=== PATIENT | male | born 2000 | race African-American/Black ===

== ENCOUNTER 2024-11-26 03:01 | Inpatient (IN) | payer MEDICAID ==
[~2024-11-26] VITALS: Ht 195.6 cm; Wt 76.7 kg
[2024-11-26] VITALS (13 sets, daily range): BP systolic 123–139; BP diastolic 62–90; PULSE 70–88; RESP 16–18; TEMP 97.2–98.8; O2SAT 96–99
[2024-11-26] MEDS ORDERED: OLANZapine 5 MG RAPDIS TABLET PO PRN (03:30)
[2024-11-26] MEDS ORDERED: INFLUENZA VIRUS VACCINE TVS (6MO+) 2025-26/PF 45 MCG/0.5 ML SYRINGE IM. ONE (05:30)
[2024-11-26 05:36] LABS: GLUCOMETER DEV NAME(LOC) POC.BV; POC SARS-COV2 AG, FIA NEGATIVE (NEGATIVE)
[2024-11-26] MEDS ORDERED: MAGNESIUM HYDROXIDE SUSPENSION 30 ML UDCUP PO PRN (09:00)
[2024-11-26] MEDS ORDERED: GuaiFENesin/D-METHORPHAN [SUGAR-FREE] 200-20MG/10 ML SYRUP UDCUP PO PRN (09:00)
[2024-11-26] MEDS ORDERED: ACETAMINOPHEN 325 MG TABLET PO PRN (09:00)
[2024-11-26] MEDS ORDERED: PROMETHAZINE HCL 25 MG TABLET PO PRN (09:00)
[2024-11-26] MEDS ORDERED: LOPERAMIDE HCL 2 MG CAPSULE PO PRN ×2 (09:00)
[2024-11-26] MEDS ORDERED: MAG HYDROX/ALUMINUM HYD/SIMETH ES 30 ML SUSPENSION UDCUP PO PRN (09:00)
[2024-11-26] MEDS: OMEGA-3/DHA/EPA/FISH OIL 1,000 MG CAPSULE PO SCH (13:00)
[2024-11-26] MEDS: NALTREXONE HCL 50 MG TABLET PO SCH (14:07)
[2024-11-26] MEDS: FOLIC ACID 1 MG TABLET PO SCH (14:07)
[2024-11-26] MEDS: MULTIVITAMINS WITH MINERALS, THERAPEUTIC TABLET PO SCH (14:07)
[2024-11-26] MEDS: THIAMINE 100 MG TABLET PO SCH (14:07)
[2024-11-26] MEDS: CYANOCOBALAMIN 1,000 MCG/ML VIAL IM ONE (16:57)
[2024-11-26] MEDS: PALIPERIDONE PALMITATE 234 MG/1.5 ML SYRINGE IM ONE (20:04)
[2024-11-26] MEDS ORDERED: OLANZapine 5 MG RAPDIS TABLET PO SCH (21:00)
[2024-11-27 02:10] VITALS: RESP 18
[2024-11-27 06:14] VITALS: RESP 18
[2024-11-27] MEDS: LURASIDONE HCL 40 MG TABLET PO SCH (06:21)
[2024-11-27 08:07] VITALS: BP 135/67; PULSE 65; RESP 16; TEMP 98.1; O2SAT 100
[2024-11-27] MEDS: DIVALPROEX SODIUM 500 MG ER TABLET PO SCH (09:01)
[2024-11-27 09:22] LABS: PLATELET COUNT (AUTO) 252 K/uL (150-450); RED BLOOD CELL COUNT(AUTO) 4.97 MIL/uL (4.50-5.90); RED CELL DISTRIBUTION WIDTH 13.1 % (11.5-14.5); WHITE BLOOD COUNT (AUTO) 5.4 K/uL (4.5-11.0)
[2024-11-27 09:44] LABS: ASPARTATE AMINOTRANSFERASE 27 U/L (15-37); CALCIUM, TOTAL 9.1 mg/dL (8.8-10.5); CHOL/HDL RATIO 2.7 (4.2-7.3); CREATININE 0.72 mg/dL (0.60-1.30); GLOMERULAR FILTR. RATE CALC > 60 mL/min (>60); GLUCOSE,RANDOM 118 mg/dL (70-110); LDL CHOL (CALC.) 92 mg/dL (0-130); SODIUM SERUM 139 mmol/L (136-145); TOTAL PROTEIN, SERUM 7.6 g/dL (6.4-8.2); UREA NITROGEN, BLOOD 13 mg/dL (7-18)
[2024-11-27 10:08] LABS: ALCOHOL, BLOOD (SERUM) < 3 mg/dL (0-10)
[2024-11-27 20:00] VITALS: BP 114/62; PULSE 68; RESP 17; TEMP 98.1; O2SAT 100
[2024-11-28 08:17] VITALS: BP 121/89; PULSE 68; RESP 17; TEMP 98.4; O2SAT 98
[2024-11-28 13:12] VITALS: BP 122/7
[2024-11-28 20:16] VITALS: BP 133/89; PULSE 89; RESP 17; TEMP 98.1; O2SAT 100
[2024-11-28] MEDS: TUBERCULIN, PURIFIED PROTEIN DERIVATIVE 5 TU/0.1 ML SYRINGE ID ONE (22:00)
[2024-11-29 08:22] VITALS: BP 130/80; PULSE 65; RESP 17; TEMP 98.2; O2SAT 99
[2024-11-29 20:13] VITALS: BP 115/66; PULSE 83; RESP 17; TEMP 97.7; O2SAT 98
[2024-11-29] MEDS: ZOLPIDEM TARTRATE 10 MG TABLET PO PRN (21:05)
[2024-11-30 08:20] VITALS: BP 142/83; PULSE 77; RESP 17; TEMP 98; O2SAT 100
[2024-11-30] MEDS: PALIPERIDONE PALMITATE 156 MG/ML SYRINGE IM ONE (10:08)
[2024-11-30 20:00] VITALS: BP 132/73; PULSE 82; RESP 18; TEMP 97.7; O2SAT 100
[2024-11-30] MEDS: MELATONIN 5 MG TABLET PO PRN (21:25)
[2024-12-01 08:18] VITALS: BP 123/86; PULSE 81; RESP 19; TEMP 98.1; O2SAT 99
[2024-12-01 20:09] VITALS: BP 138/90; PULSE 78; RESP 18; TEMP 98; O2SAT 99
[2024-12-02 08:26] VITALS: BP 127/92; PULSE 77; RESP 17; TEMP 98.2
[2024-12-02 20:37] VITALS: BP 140/91; PULSE 78; RESP 17; TEMP 99; O2SAT 98
[2024-12-03] MEDS: LURASIDONE HCL 60 MG TABLET PO SCH (06:15)
[2024-12-03 08:15] VITALS: BP 120/75; PULSE 77; RESP 17; TEMP 98; O2SAT 100
[2024-12-03 20:11] VITALS: BP 131/89; PULSE 71; RESP 18; TEMP 99.1; O2SAT 100
[2024-12-04] MEDS: LURASIDONE HCL 80 MG TABLET PO SCH (06:41)
[2024-12-04 13:03] VITALS: BP 139/88; PULSE 93; RESP 16; TEMP 98.1; O2SAT 98
[2024-12-04 20:21] VITALS: BP 126/92; PULSE 84; RESP 18; TEMP 97.9; O2SAT 99
[2024-12-05 08:10] VITALS: BP 128/93; PULSE 75; RESP 18; TEMP 98.1; O2SAT 96
[2024-12-05 20:15] VITALS: BP 129/86; PULSE 83; RESP 18; TEMP 98.2; O2SAT 99
[2024-12-06] MEDS: LURASIDONE HCL 40 MG TABLET PO SCH (06:16)
[2024-12-06 08:18] VITALS: BP 122/79; PULSE 79; RESP 18; TEMP 97.2; O2SAT 97
[2024-12-06 20:19] VITALS: BP 134/99; PULSE 75; RESP 18; TEMP 98.1; O2SAT 100
[2024-12-07 08:13] VITALS: BP 114/76; PULSE 80; RESP 18; TEMP 98.8; O2SAT 99
[2024-12-07 10:15] LABS: APPEARANCE,URINE CLEAR (CLEAR); GLUCOSE, URINE (UA) NEGATIVE (NEGATIVE); LEUKOCYTE ESTERASE ,URINE NEGATIVE (NEGATIVE); NITRATE,URINE NEGATIVE (NEGATIVE); OCCULT BLOOD,URINE NEGATIVE (NEGATIVE); PH,URINE DRUG SCREEN 7.0 (5.0-8.0); SPECIFIC GRAVITIY, URINE 1.016 (1.003-1.030)
[2024-12-07 10:22] LABS: ALCOHOL, URINE DRUG SCREEN NEGATIVE (NEGATIVE); AMPHET/METH SCREEN,URINE NEGATIVE (NEGATIVE); BARBITURATE SCREEN, URINE NEGATIVE (NEGATIVE); CANNABINOID SCREEN,URINE NEGATIVE (NEGATIVE); COCAINE SCREEN,URINE NEGATIVE (NEGATIVE); METHADONE SCREEN, URINE NEGATIVE (NEGATIVE)
[2024-12-07 20:22] VITALS: BP 137/90; PULSE 79; RESP 18; TEMP 97.4; O2SAT 99
[2024-12-08 08:15] VITALS: BP 117/67; PULSE 59; RESP 18; TEMP 98.1; O2SAT 98
[2024-12-08 20:31] VITALS: BP 125/89; PULSE 71; RESP 18; TEMP 98.2; O2SAT 100
[2024-12-09 08:20] VITALS: BP 115/63; PULSE 64; RESP 17; TEMP 98.2; O2SAT 96
[2024-12-09 20:13] VITALS: BP 131/87; PULSE 68; RESP 18; TEMP 97.7; O2SAT 100
[2024-12-10 08:26] VITALS: BP 100/62; PULSE 63; RESP 18; TEMP 98.8; O2SAT 98
[2024-12-10] MEDS ORDERED: LAMO25TA36 PO (11:33)
[2024-12-10] MEDS ORDERED: MELA5TAB40 PO (11:33)
[2024-12-10] MEDS ORDERED: NALT50TA33 PO (11:33)
[2024-12-10] MEDS ORDERED: LURA40TA2 PO (11:33)
[2024-12-10] MEDS ORDERED: FLUO-418 PO (11:33)
[2024-12-10] MEDS ORDERED: AMLO-258 PO (13:10)
== END 2024-12-10 13:45 | disposition home or self-care (01) | DRG 750 ==
LOC: B2S 03:36
PROVIDERS: ADMIT Psychiatry & Neurology Psychiatry; ATTEND Psychiatry & Neurology Psychiatry
PROC: GZHZZZZ Group Psychotherapy (ICD-10-PCS; principal; 2024-11-26)
PROC: GZ58ZZZ Individual Psychotherapy, Cognitive-Behavioral (ICD-10-PCS; 2024-11-26)
PROC: GZ56ZZZ Individual Psychotherapy, Supportive (ICD-10-PCS; 2024-11-26)
DX: F20.0 Paranoid schizophrenia (principal); Z59.02 Unsheltered homelessness; F10.20 Alcohol dependence, uncomplicated; F31.30 Bipolar disorder, current episode depressed, mild or moderate severity, unspecified; Z20.822 Contact with and (suspected) exposure to COVID-19; F17.200 Nicotine dependence, unspecified, uncomplicated; Z63.9 Problem related to primary support group, unspecified; Z65.3 Problems related to other legal circumstances; Z55.9 Problems related to education and literacy, unspecified; Z68.20 Body mass index [BMI] 20.0-20.9, adult
CPT/HCPCS: 80053; 80061; 80307; 81003; 83036; 84436; 84439; 84443; 85025; 86592; 87081; G0480; J3420